=== PATIENT | female | born 1950 | race Hispanic/Latino ===

== ENCOUNTER 2017-07-24 07:34 | Emergency (ER) | payer OTHER ==
[2017-07-24 07:41] VITALS: BMI 30.1
--- NOTE | 2017-07-24 08:00 | ED PDOC ---
HPI: Back Time Seen by Provider: 07/24/17 07:42 Chief Complaint (Nursing): Back Pain Chief Complaint (Provider): Lower Back Pain History Per: Patient History/Exam Limitations: no limitations Onset/Duration Of Symptoms: Hrs Current Symptoms Are (Timing): Still Present Quality Of Discomfort: "Pain" Additional Complaint(s): 66 year old female with a past medical history of thyroid disease presents to the ED c/o right lower back pain radiating to right abdomen associated with dysuria, nausea, feeling cold, sweats and runny nose. Patient reports she has never felt pain like this in the past. Patient has had an endometriosis, left knee surgery, and gel knee injection in the past. Patient is currently taking Synthroid. Denies vomiting, cough, and shortness of breath. PMD: Dr. Cervantes Past Medical History Reviewed: Historical Data, Nursing Documentation, Vital Signs Vital Signs: Last Vital Signs Temp 97 F L 07/24/17 07:39 Pulse 71 07/24/17 07:39 Resp BP 172/84 H 07/24/17 07:39 Pulse Ox 99 07/24/17 07:39 - Medical History PMH: Hypothyroidism - Surgical History Other surgeries: Endometriosis, left knee surgery - Family History Family History: States: Unknown Family Hx - Home Medications Home Medications: Ambulatory Orders Medication Instructions Recorded Ketorolac Tromethamine [Toradol] 10 mg PO Q6H PRN #19 tab 07/24/17 Ondansetron [Zofran] 4 mg PO Q8H #9 tab 07/24/17 Sulfamethoxazole/Trimethoprim 1 tab PO BID #14 tab 07/24/17 [Bactrim DS 800 mg-160 mg] traMADol [Ultram] 50 mg PO TID PRN #10 tab 07/24/17 - Allergies Allergies/Adverse Reactions: Allergies Allergy/AdvReac Type Severity Reaction Status Date / Time Penicillins Allergy RASH Verified 07/24/17 07:57 Review of Systems ROS Statement: Except As Marked, All Systems Reviewed And Found Negative Constitutional: Positive for: Chills, Sweats. Negative for: Fever ENT: Positive for: Nose Discharge Respiratory: Negative for: Cough, Shortness of Breath Gastrointestinal: Positive for: Nausea, Abdominal Pain (right abdominal pain radiated from right lower back pain. ). Negative for: Vomiting Genitourinary Female: Positive for: Dysuria Musculoskeletal: Positive for: Back Pain (right lower back pain ) Physical Exam - Reviewed Nursing Documentation Reviewed: Yes Vital Signs Reviewed: Yes - Physical Exam Appears: Positive for: Uncomfortable (moderate to severe discomfort), In Acute Distress Skin: Positive for: Normal Color, Warm, DRY ENT: Positive for: Normal ENT Inspection, Other (mucous membranes dry ) Neck: Positive for: Normal, Supple Cardiovascular/Chest: Positive for: Regular Rate, Rhythm. Negative for: Murmur Respiratory: Positive for: Normal Breath Sounds. Negative for: Respiratory Distress Gastrointestinal/Abdominal: Positive for: Normal Exam, Tenderness (tenderness in right lateral abdomen ). Negative for: Guarding, Rebound Back: Positive for: Normal Inspection, R CVA Tenderness. Negative for: L CVA Tenderness Extremity: Positive for: Normal ROM. Negative for: Swelling Neurologic/Psych: Positive for: Alert, Oriented - Laboratory Results Result Diagrams: 07/24/17 08:31 07/24/17 08:31 - ECG O2 Sat by Pulse Oximetry: 99 (RA) Pulse Ox Interpretation: Normal Medical Decision Making Medical Decision Making: Time: 811 Impression: Right flank pain Differentials include pyelonephritis and renal colic Plan: -- CMP -- Lipase -- ED Urine Dipstick -- CBC with differentials -- Morphine 2 mg IVP -- Sodium Chlrodie 1000 mls/hr -- Toradol 30 mg IVP -- Zofram 4 mg IVP -- Urinalysis Time: 50 Plan: -- CT Abd/Pelvis w/o contrast Time: 1136 CT Abd/Pelvis Results FINDINGS: LOWER THORAX: 5 mm pleural-based nodule in left lower lobe. No followup advised. LIVER: Unremarkable. No gross lesion or ductal dilatation. GALLBLADDER AND BILE DUCTS: Unremarkable. PANCREAS: Unremarkable. No gross lesion or ductal dilatation. SPLEEN: Unremarkable. ADRENALS: Unremarkable. No mass. KIDNEYS AND URETERS: Mild right hydroureteronephrosis. No urinary calculus. No renal mass. No perinephric fluid. Mild right perinephric stranding. VASCULATURE: Unremarkable. No aortic aneurysm. BOWEL: Unremarkable. No obstruction. No gross mural thickening. APPENDIX: Not identified PERITONEUM: Unremarkable. No free fluid. No free air. LYMPH NODES: Unremarkable. No enlarged lymph nodes. BLADDER: Nondistended REPRODUCTIVE: Unremarkable postmenopausal uterus BONES: No acute fracture. OTHER FINDINGS: None. IMPRESSION: Mild right hydroureteronephrosis and mild right perinephric stranding. No urinary calculus. This may result from a recently passed urinary calculus. Otherwise unremarkable examination. Scribe Attestation: Documented by Ollie Cross, acting as a scribe for Dr. Toussaint. Provider Scribe Attestation: All medical record entries made by the Scribe were at my direction and personally dictated by me. I have reviewed the chart and agree that the record accurately reflects my personal performance of the history, physical exam, medical decision making, and the department course for this patient. I have also personally directed, reviewed, and agree with the discharge instructions and disposition. 1.00pm feeling better but still has pain. CT and labs reviewed with patient. She thinks that it is reasonable for her to be discharged so that she can followup with her PMD near home in [place]. Disposition - Clinical Impression Clinical Impression: Renal colic on right side - Patient ED Disposition Is Patient to be Admitted: No - Disposition Referrals: Sathya Burciaga MD [Staff Provider] - Devon Dias [place] [Outside] Disposition: Routine/Home Disposition Time: 13:05 Condition: IMPROVED Prescriptions: Ketorolac Tromethamine [Toradol] 10 mg PO Q6H PRN #19 tab PRN Reason: Pain, Moderate (4-7) Ondansetron [Zofran] 4 mg PO Q8H #9 tab Sulfamethoxazole/Trimethoprim [Bactrim DS 800 mg-160 mg] 1 tab PO BID #14 tab traMADol [Ultram] 50 mg PO TID PRN #10 tab PRN Reason: breakthrough Instructions: Renal Colic Forms: [employer] ([place]), [facility] ED School/Work Excuse - POA Present On Arrival: None
[2017-07-24] MEDS ORDERED: Sodium Chloride 0.9% 1,000 ML IV STA (08:02)
[2017-07-24 08:44] LABS: BASO # 0.1 K/uL (0.0-0.2); BASO % 1.1 % (0.0-2.0); EOS # 0.2 K/uL (0.0-0.7); EOS % 3.4 % (0.0-4.0); HEMOGLOBIN 15.6 g/dL (12.0-16.0); LYMPH # 1.7 K/uL (1.0-4.3); LYMPH % 31.3 % (20.0-40.0); MEAN CELL VOLUME 91.6 fl (81.0-99.0); MEAN CORPUSCULAR HEMOGLOBIN 30.4 pg (27.0-31.0); MEAN CORPUSCULAR HGB CONC 33.2 g/dL (33.0-37.0); MEAN PLATELET VOLUME 8.8 fl (7.2-11.7); MONO # 0.4 K/uL (0.0-0.8); MONO % 7.3 % (0.0-10.0); NEUT % 56.9 % (50.0-75.0); NRBC % 0.1 % (0.0-0.0); RBC 5.12 Mil/uL (3.80-5.20); RED CELL DISTRIBUTION WIDTH 13.5 % (11.5-14.5); WHITE BLOOD COUNT 5.3 K/uL (4.8-10.8)
[2017-07-24 08:49] LABS: CALCIUM 9.7 mg/dL (8.4-10.2); GFR AFRICAN-AMERICAN > 60; GFR NON-AFRICAN AMERICAN > 60; LIPASE 23 U/L (23-300)
[2017-07-24 08:51] LABS: ALB/GLOB RATIO 1.5 (1.0-2.1); ALBUMIN 4.6 g/dL (3.5-5.0); ALT/SGPT 30 U/L (9-52); AST/SGOT 43 U/L (14-36); BLOOD UREA NITROGEN 24 mg/dl (7-17)
[2017-07-24 09:14] LABS: URINE BILIRUBIN NEGATIVE (NEGATIVE); URINE BLOOD MODERATE (NEGATIVE); URINE CLARITY SLIGHTY-CLOUDY (Clear); URINE COLOR YELLOW (YELLOW); URINE GLUCOSE (UA) NEG (Normal); URINE LEUKOCYTE ESTERASE NEG Leu/uL (Negative); URINE PROTEIN 30 mg/dL (NEGATIVE); URINE UROBILINOGEN 0.2-1.0 mg/dL (0.2-1.0)
--- NOTE | 2017-07-24 11:37 | CT ---
PROCEDURE: CT Abdomen and Pelvis without intravenous contrast HISTORY: right flank pain, micro hematuria COMPARISON: None. TECHNIQUE: Without contrast.. Contrast Dose: 0 Radiation dose: Total exam DLP = Total exam DLP = 787.22 mGy-cm. This CT exam was performed using one or more of the following dose reduction techniques: Automated exposure control, adjustment of the mA and/or kV according to patient size, and/or use of iterative reconstruction technique. FINDINGS: LOWER THORAX: 5 mm pleural-based nodule in left lower lobe. No followup advised. LIVER: Unremarkable. No gross lesion or ductal dilatation. GALLBLADDER AND BILE DUCTS: Unremarkable. PANCREAS: Unremarkable. No gross lesion or ductal dilatation. SPLEEN: Unremarkable. ADRENALS: Unremarkable. No mass. KIDNEYS AND URETERS: Mild right hydroureteronephrosis. No urinary calculus. No renal mass. No perinephric fluid. Mild right perinephric stranding. VASCULATURE: Unremarkable. No aortic aneurysm. BOWEL: Unremarkable. No obstruction. No gross mural thickening. APPENDIX: Not identified PERITONEUM: Unremarkable. No free fluid. No free air. LYMPH NODES: Unremarkable. No enlarged lymph nodes. BLADDER: Nondistended REPRODUCTIVE: Unremarkable postmenopausal uterus BONES: No acute fracture. OTHER FINDINGS: None. IMPRESSION: Mild right hydroureteronephrosis and mild right perinephric stranding. No urinary calculus. This may result from a recently passed urinary calculus. Otherwise unremarkable examination.
[2017-07-24 14:07] VITALS: PULSE 76; RESP 18; TEMP 98; O2SAT 97
[2017-07-24 14:53] VITALS: BP 159/95
== END 2017-07-24 14:53 | disposition home or self-care (01) ==
LOC: H.ER 07:34
DX: N23 Unspecified renal colic (principal); E03.9 Hypothyroidism, unspecified; N80.9 Endometriosis, unspecified; Z88.0 Allergy status to penicillin
CPT/HCPCS: 74176; 80053; 81003; 83690; 85025; 96361; 96374; 96375; 96376; 99284; J1885; J2270; J2405; J7040